=== PATIENT | female | born 1955 | race Two or more races ===

== ENCOUNTER 2016-03-22 13:17 | Emergency (ER) | payer MEDICARE, BC ==
[~2016-03-22] VITALS: Ht 154.9 cm; Wt 68.0 kg
[2016-03-22 13:22] VITALS: BP 153/83
[2016-03-22] MEDS ORDERED: ACETAMINOPHEN 325 MG TABLET PO STA (13:52)
[2016-03-22] MEDS ORDERED: ACETAMINOPHEN ES 500 MG TABLET ONE (13:54)
== END 2016-03-22 15:50 | disposition home or self-care (01) ==
LOC: ER 13:21
DX: R51 Headache (principal); M54.2 Cervicalgia; M25.519 Pain in unspecified shoulder; E11.9 Type 2 diabetes mellitus without complications; F32.9 Major depressive disorder, single episode, unspecified; I10 Essential (primary) hypertension; M06.9 Rheumatoid arthritis, unspecified; Z85.3 Personal history of malignant neoplasm of breast; V89.2XXA Person injured in unspecified motor-vehicle accident, traffic, initial encounter; Y93.89 Activity, other specified; Y92.89 Other specified places as the place of occurrence of the external cause; Y99.9 Unspecified external cause status
CPT/HCPCS: 70450; 99284; A4606; Z7610